=== PATIENT | male | born 1955 | race African-American/Black ===

== ENCOUNTER 2022-12-06 22:58 | Emergency (ER) | payer OTHER ==
[~2022-12-06] VITALS: Ht 182.9 cm; Wt 120.0 kg
[2022-12-06 23:11] VITALS: O2SAT 97
[2022-12-06] MEDS ORDERED: ONDANSETRON HCL 4MG/2ML INJ IV STA (23:59)
[2022-12-06] MEDS ORDERED: MORPHINE SULFATE 4 MG/ML CPJ (NOT FOR IM USE) IV STA (23:59)
[2022-12-07 01:03] LABS: BASOPHILS % 0.4 % (0.0-2.0); DIFFERENTIAL COMMENT 0; EOSINOPHILS % 0.5 % (0.0-5.0); HEMATOCRIT. 32.7 % (42.0-52.0); HEMOGLOBIN. 11.2 g/dL (14.0-18.0); LYMPHOCYTES % 8.3 % (20.0-50.0); MEAN CORPUSCULAR HEMOGLOBIN 27.4 pg (28.0-32.0); MEAN CORPUSCULAR HGB CONC 34.3 g/dL (31.0-37.0); MEAN CORPUSCULAR VOLUME 79.9 fL (80.0-94.0); MEAN PLATELET VOLUME 6.6 fl (7.4-10.4); MONOCYTES % 9.3 % (2.0-8.0); NEUTROPHILS % 81.5 % (40.0-76.0); PLATELET 344 x1000/uL (130-400); RED BLOOD CELL COUNT 4.09 mill/uL (4.7-6.1); RED CELL DISTRIBUTION WIDTH 15.9 % (11.6-14.6); WHITE BLOOD COUNT 18.8 x1000/uL (4.5-11.0)
[2022-12-07 01:08] LABS: CHLORIDE 104 mEq/L (98-107); INDEX HEMOLYSI 1 (1-3); INDEX ICTERIC 1 (1-4); INDEX LIPEMIC 1 (1-3); POTASSIUM 3.9 mEq/L (3.5-5.1); SODIUM 137 mEq/L (136-145)
[2022-12-07 01:22] LABS: ALANINE AMINOTRANSFERASE 35 IU/L (13-61); ALBUMIN 2.9 g/dL (3.4-5.0); ASPARTATE AMINOTRANSFERASE 19 IU/L (15-37); BILIRUBIN TOTAL 0.8 mg/dL (0.1-1.0); CALCIUM 8.9 mg/dL (8.5-10.1); CARBON DIOXIDE 23 mEq/L (21-32); CREATININE 1.5 mg/dL (0.6-1.3); GLUCOSE 250 mg/dL (70-105); PROTEIN TOTAL 7.7 g/dL (6.0-8.3); TROPONIN I HIGH SENSITIVITY 4 ng/L (<78); UREA NITROGEN BLOOD 23 mg/dL (7-21)
[2022-12-07 01:51] LABS: LACTIC ACID 3.8 mmol/L (0.4-2.0)
[2022-12-07] MEDS ORDERED: SODIUM CHLORIDE 0.9% 1,000 ML IV ONE ×2 (05:15)
[2022-12-07] MEDS ORDERED: PIPERACILLIN/TAZ 3.375G PREMIX 50 ML IV ONE (05:15)
[2022-12-07] MEDS ORDERED: IOHEXOL-300 100 ML BOTTLE ONE (05:24)
[2022-12-07] MEDS ORDERED: LABETALOL 5MG/ML SYR 20 MG/4 ML SYRINGE IV SCH (08:45)
[2022-12-07] MEDS ORDERED: LABETALOL HCL VIAL 20 MG/4 ML VIAL IV ONE (08:45)
[2022-12-07 09:16] VITALS: BP 171/86; PULSE 69; RESP 18; TEMP 98
== END 2022-12-07 10:59 | disposition short-term general hospital (02) ==
LOC: ER 22:58
DX: R19.7 Diarrhea, unspecified (principal); I95.9 Hypotension, unspecified; E11.9 Type 2 diabetes mellitus without complications; E78.00 Pure hypercholesterolemia, unspecified; R10.819 Abdominal tenderness, unspecified site
CPT/HCPCS: 99291; 71045; 36415; 93005; 74177; 96374; 96375; 96361; 80053; 83605; 83690; 85025; 86850; 86900; 86901; 84484; Q9967; J2405; J2543; J2270; J7030; J3490